=== PATIENT | female | born 1960 | race Caucasian/White ===

== ENCOUNTER → 2018-05-09 | Outpatient (CLI) | payer OTHER ==
[~2018-05-09] MED LIST: ACE3 PO; ASP325 PO; CELE50CA2 PO; CEPH-13 PO; CEPH250C37 PO; CIP500 PO; DIP5L PO; DIPH-740 PO; EPIN0.3P14 IM; HYDR-6016 PO; HYDR-653 PO; HYDR-654 PO; IBU600 PO; LOR5 PO; LOR5/325 PO; METH4TAB57 PO; NAPR220C11 PO; OND4 PO; ORPH1TAB PO; OXYC-866 FT; PRE20 PO; RIZA10TA PO
--- NOTE | 2018-05-09 14:30 | RADIOLOGY IMAGING REPORT ---
[place] [facility] [place]: GRICEL LIU : [id number] MR: [id number] V: [id number] EXAM DATE: ORDERING PHYSICIAN: CHI MURRAY TECHNOLOGIST: Teresa Jernigan PROCEDURE:BILATERAL DIGITAL SCREENING MAMMOGRAM WITH CAD ASSISTED INTERPRETATION & 3D TOMOSYNTHESIS COMPARISON:Prior mammograms 05/01/17, 04/05/16, 03/29/15, 03/01/14. INDICATIONS:screening FINDINGS: Mildly heterogeneous fibroglandular tissue is seen throughout the breasts. The parenchymal pattern has remained stable allowing for difference in mammographic technique & patient positioning. There is no evidence of malignant appearing mass, malignant appearing calcifications or other secondary sign of malignancy in either breast. DIAGNOSTIC CATEGORY 1--NEGATIVE. RECOMMENDATIONS: ROUTINE MAMMOGRAM AND CLINICAL EVALUATION. IMPRESSION: BIRADS 1: Negative. No significant abnormality is seen. Dictated by: Katerina Chavez M.D. on 05/09/2018 at 14:10 Transcribed by: CADEN on 05/09/2018 at 14:24 Approved by: Katerina Chavez M.D. on 05/09/2018 at 14:28 [facility]
== END ==
LOC: MAMO 03:28
PROVIDERS: ATTEND Family Medicine
DX: Z12.31 Encounter for screening mammogram for malignant neoplasm of breast (principal)
CPT/HCPCS: 77063; 77067

== ENCOUNTER → 2018-08-13 | Outpatient (CLI) | payer OTHER ==
[~2018-08-13] MED LIST changes: -NAPR220C11 PO; +NAPR220C62 PO
--- NOTE | 2018-08-13 14:13 | RADIOLOGY IMAGING REPORT ---
[place] [facility] [place]: Dinah Mancuso : 1960 MR: [id number] V: [id number] EXAM DATE: ORDERING PHYSICIAN: JOHN ANGUIANO TECHNOLOGIST: Location: [facility] [place] Patient: Dinah Mancuso : 1960 Visit/Account:[id number] Date of Sevice: 08/13/2018 Exam type: CHEST PA LAT History: Bronchitis acute, cough x7 weeks Comparison: December 09, 2014. Findings: The lungs are free of acute effusions, infiltrates or edema. The cardiac silhouette is normal in siz e. There are postsurgical changes of the left shoulder. There is an S-shaped scoliosis of the thora columbar spine IMPRESSION: 1. No acute cardiopulmonary process is seen Report Dictated By: Katerina Chavez MD at 08/13/2018 2:05 PM Report E-Signed By: Katerina Chavez MD at 08/13/2018 2:08 PM WSN:[id number]
== END ==
LOC: RAD 13:30
PROVIDERS: ATTEND Physician Assistant
DX: J20.9 Acute bronchitis, unspecified (principal)
CPT/HCPCS: 71046